=== PATIENT | male | born 1960 | race Two or more races ===

== ENCOUNTER 2019-09-07 12:12 | Emergency (ER) | payer OTHER ==
[~2019-09-07] VITALS: Ht 185.4 cm; Wt 96.0 kg
[2019-09-07] MEDS ORDERED: SODIUM CHLORIDE 0.9% 1,000 ML IV ONE ×4 (12:37→13:30)
[2019-09-07 13:02] LABS: BASOPHILS % 0.4 % (0.0-2.0); EOSINOPHILS % 0.8 % (0.0-5.0); HEMOGLOBIN. 14.7 g/dL (14.0-18.0); LYMPHOCYTES % 23.3 % (20.0-50.0); MEAN CORPUSCULAR HEMOGLOBIN 27.8 pg (28.0-32.0); MEAN CORPUSCULAR VOLUME 83.4 fL (80.0-94.0); MEAN PLATELET VOLUME 10.3 fl (7.4-10.4); MONOCYTES % 9.2 % (2.0-8.0); NEUTROPHILS % 66.3 % (40.0-76.0); PLATELET 144 x1000/uL (130-400); RED BLOOD CELL COUNT 5.27 mill/uL (4.7-6.1); RED CELL DISTRIBUTION WIDTH 14.1 % (11.6-14.6)
[2019-09-07 13:04] LABS: CHLORIDE 111 mEq/L (98-107)
[2019-09-07 13:12] LABS: BETA HYDROXYBUTYRATE 2.2 mMol/L (0.0-0.3)
[2019-09-07 16:08] VITALS: BP 149/91
== END 2019-09-07 16:23 | disposition home or self-care (01) ==
LOC: ER 12:48
DX: E11.65 Type 2 diabetes mellitus with hyperglycemia (principal)
CPT/HCPCS: 36415; 80053; 82010; 85025; 93005; 96360; 96361; 99284; J7030